=== PATIENT | male | born 1970 | race Two or more races ===

== ENCOUNTER 2018-03-26 11:48 | Inpatient (IN) | payer MEDICARE, OTHER ==
[~2018-03-26] VITALS: Ht 180.3 cm; Wt 114.8 kg
--- NOTE | 2018-03-26 12:30 | NUR ---
GPS ROLLER PRESSER OPERATOR NOTES: ADMITTED A 47YO MALE FROM [facility] ON 5150 HOLD FOR DAANGER TO [facility]. PATIENT IS UNDER THE CARE OF DR. MÉNDEZ AND DR. JARRETT. PER HOLD THE PATIENT IS DEPRESSED, , IN SAD MOOD, FLAT AFFECT, EXPRESSING COMPLETE HOPELESSNESS AND WAS UNABLE TO TO ENGAGE IN A SAFETY PLAN. PATIENT HAS HISTORY OF SELF HARM ATTEMPTS IN THE PAST AND MULTIPLE INPATIENT PSYCH ADMISSION. PATIENT BROUGHT INTO THE UNIT, AMBULATORY USHERED BY AMBULANCE STAFF. PRESENTS AT ALERT AND ORIENTED X4. ABLE TO STATE HIS NEEDS. REALITY ORIENTATION DONE. ORIENTATION TO UNIT, STAFF, POLICIES, DOCTORS AND CARE PLAN DONE. BELONGINGS AND CONTRABAND CHECK. SKIN AND BODY ASSESSMENT DONE. PATIENT DOES NOT HAVE ANY SKIN ISSUES HE CLAIMS AT THIS TIME. Q15 MIN CHECKS INITIATED. CARE PLAN ACKNOWLEDGE AND INITIATED. PATIENT SIGNED ALL ADMISSION PAPERS. MEDICATIONS BROUGHT IN WITH THE PATIENT SUBMITTED TO PHARMACY. DR. MÉNDEZ INFORMED OF THIS ADMISSION. DR. RED INFORMED WELL AND REMINDED OF MED RECON. MRSA DONE. PATIENT ADMITS TO HAVING SUICIDAL THOUGHTS, WHEN ASKED OF THE PLAN, HE STATED THERE IS NO PLAN. AND THAT THE VOICE ARE JUST TELLING HIM THAT HE IS A COWARD FOR NOT DOING IT. PATIENT DENIES ANY AUDITORY OR VISUAL HALLUCINATION. WILL MONITOR PATIENT FOR MOOD, SAFETY AND BEHAVIOR.
[2018-03-26] MEDS ORDERED: TEMAZEPAM 7.5 MG CAPSULE PO PRN (13:00)
[2018-03-26] MEDS ORDERED: MAG HYDROX/AL HYDROX/SIMETH 30 ML UDC PO PRN (13:00)
[2018-03-26] MEDS ORDERED: ACETAMINOPHEN 325 MG TABLET PO PRN (13:00)
[2018-03-26] MEDS ORDERED: MAGNESIUM HYDROXIDE 30 ML UDC PO PRN (13:00)
[2018-03-26] MEDS ORDERED: LORAZEPAM 0.5 MG TABLET PO PRN (13:00)
[2018-03-26 16:00] VITALS: BP 153/88
[2018-03-26] MEDS ORDERED: LOSA50TA39 PO (17:30)
[2018-03-26] MEDS ORDERED: BUPR100T5 PO (17:30)
[2018-03-26] MEDS ORDERED: HYDR25TA4 PO (17:30)
[2018-03-26] MEDS ORDERED: DOLU50TA PO (17:30)
[2018-03-26] MEDS ORDERED: EMTR1TAB6 PO (17:30)
[2018-03-26] MEDS ORDERED: MIRT30TA PO (17:31)
[2018-03-26] MEDS ORDERED: HYDR25CA PO (17:31)
[2018-03-26] MEDS ORDERED: ESCI20TA PO (17:31)
[2018-03-26] MEDS ORDERED: RIVASTIGMINE TARTRATE 1.5 MG CAPSULE PO SCH (19:30)
--- NOTE | 2018-03-26 19:30 | NUR ---
GPS RN NOTE, RECEIVED PATIENT AWAKE AND IN BED, NO S/S OR COMPLAINTS OF PAIN AT THIS TIME. PATIENT IS DISPLAYING NO S/S OF APPARENT DISTRESS AT THIS TIME. PATIENT BREATHING IS UNLABORED WITH EQUAL RISE AND FALL OF THE CHEST. PATIENT IS ALERT AND ORIENTED X 2 ON ROOM AIR WITH A SPO2 OF 97%. PATIENT IS MED COMPLIANT, COOPERATIVE, DEPRESSED, ANXIOUS, DISORGANIZED, PARANOID, AND NEEDS REDIRECTION. PATIENT HAS A PATIENT DENIES SUICIDE IDEATIONS AND HOMICIDAL IDEATIONS AT THIS TIME. PATIENT ASSISTED WITH TURNING AND REPOSITIONING Q 2HRS AND PRN FOR COMFORT AND CIRCULATION. PATIENT HAS NO NEEDS AT THIS TIME. PATIENT EDUCATED ON THE USE OF THE CALL COOPER. PATIENT BED SIDE RAILS UP X 2 FOR SAFETY, BED IS LOCKED, LOW, AND I WILL CONTINUE TO MONITOR AND MAINTAIN SAFETY Q15 MIN WITH THE HELP OF STAFF.
[2018-03-26 20:15] VITALS: BP 162/111
[2018-03-26] MEDS: TRAZODONE 50 MG TABLET PO SCH (21:44)
[2018-03-27 08:00] VITALS: BP 150/99
[2018-03-27] MEDS: LOSARTAN POTASSIUM 50 MG TABLET PO SCH (08:34)
[2018-03-27] MEDS: HYDROCHLOROTHIAZIDE 25 MG TABLET PO SCH (08:34)
[2018-03-27] MEDS: DIVALPROEX SODIUM 250 MG TABLET.DR PO SCH ×3 (08:34→17:01)
[2018-03-27 08:37] LABS: ALBUMIN 3.6 g/dL (3.4-5.0); BILIRUBIN,TOTAL 0.5 mg/dL (0.2-1.0); CALCIUM, SERUM 9.5 mg/dL (8.5-10.1); CREATININE 1.4 mg/dL (0.6-1.3); POTASSIUM 3.6 mmol/L (3.5-5.1); TOTAL PROTEIN, SERUM 9.3 g/dL (6.4-8.2)
[2018-03-27 08:43] LABS: CHOLESTEROL 231 mg/dL (<200); HDL CHOLESTEROL 30 mg/dL (40-60); LDL 162 mg/dL (0-99); TRIGLYCERIDES 277 mg/dL (30-150)
[2018-03-27] MEDS ORDERED: EMTRICITABINE/TENOFOVIR 1 TAB PO SCH (09:00)
[2018-03-27] MEDS ORDERED: TIVICAY 50 MG PO SCH (09:00)
[2018-03-27] MEDS: EMTRICITABINE 200 MG CAPSULE PO SCH ×2 (16:00→17:01)
[2018-03-27 16:16] VITALS: BP 156/98
[2018-03-27 20:23] VITALS: BP 138/73
[2018-03-27] MEDS: TRAZODONE 50 MG TABLET PO SCH (21:27)
[2018-03-28 08:00] VITALS: BP 162/95
[2018-03-28] MEDS: TENOFOVIR DISOPROXIL FUMARATE 300 MG TABLET PO SCH (08:57)
[2018-03-28] MEDS: EMTRICITABINE 200 MG CAPSULE PO SCH (08:57)
[2018-03-28] MEDS: LOSARTAN POTASSIUM 50 MG TABLET PO SCH (08:58)
[2018-03-28] MEDS: HYDROCHLOROTHIAZIDE 25 MG TABLET PO SCH (08:58)
[2018-03-28] MEDS: DIVALPROEX SODIUM 250 MG TABLET.DR PO SCH ×3 (08:58→17:34)
--- NOTE | 2018-03-28 09:51 | NUR ---
GPS RN NOTES Spoke to pharmacist regarding Tivicay home meds: meds were delivered yesterday. Nothing noted in the casette. Requested to deliver one dose for AM.
--- NOTE | 2018-03-28 11:28 | NUR ---
GPS RN NOTES Continue to wait for Tivicay. Not in patient's casette at this moment Addendum: 03/28/18 at 1523 by JUSTIN EDMOND RN Followed up with Pharmacy for Tivicay delivery. Pharmacist stated they delivered but nothing in patient's casette or other casettes; they will delivery another dose.
--- NOTE | 2018-03-28 15:19 | NUR ---
Initial Discharge Plan: Pt is currently homeless and did not give permission to the SW to contact his friend, Jose Francisco ([phone]). Per pt, he would like to be placed in a facility. ABIODUN will work with the pt and the MD regarding appropriate discharge planning. SW will form a safe and proper discharge.
--- NOTE | 2018-03-28 15:32 | NUR ---
ABIODUN faxed a referral to [facility] to the fax number: [phone].
[2018-03-28 16:00] VITALS: BP 119/84
[2018-03-28 19:36] VITALS: BP 126/58
[2018-03-28] MEDS: TRAZODONE 50 MG TABLET PO SCH (21:20)
[2018-03-29 08:00] VITALS: BP 138/87
[2018-03-29] MEDS: LOSARTAN POTASSIUM 50 MG TABLET PO SCH (08:26)
[2018-03-29] MEDS: HYDROCHLOROTHIAZIDE 25 MG TABLET PO SCH (08:26)
[2018-03-29] MEDS: TENOFOVIR DISOPROXIL FUMARATE 300 MG TABLET PO SCH ×2 (08:26→08:57)
[2018-03-29] MEDS: DIVALPROEX SODIUM 250 MG TABLET.DR PO SCH ×3 (08:26→16:30)
[2018-03-29] MEDS: EMTRICITABINE 200 MG CAPSULE PO SCH ×2 (08:26→08:56)
[2018-03-29] MEDS: AMLODIPINE BESYLATE 5 MG TABLET PO SCH (08:44)
[2018-03-29] MEDS: TIVICAY 50 MG PO SCH (08:49)
[2018-03-29] MEDS: EMTRICITABINE/TENOFOVIR 1 TAB PO SCH (11:43)
--- NOTE | 2018-03-29 12:53 | NUR ---
Glenys ([phone]) from [facility] [place] called the SW and informed her that the pt was denied admission to their facility.
[2018-03-29 16:00] VITALS: BP 130/74
--- NOTE | 2018-03-29 16:19 | NUR ---
ABIODUN sent a referral to two facilities listed below: [facility] (attn: Divya) to the fax number: [phone] [facility] (attn: Eva) to the fax number: [phone]
[2018-03-29 20:00] VITALS: BP 120/69
[2018-03-29 20:37] VITALS: BP 120/69
[2018-03-29] MEDS: TRAZODONE 50 MG TABLET PO SCH (21:59)
[2018-03-30 08:00] VITALS: BP 125/80
[2018-03-30] MEDS: HYDROCHLOROTHIAZIDE 25 MG TABLET PO SCH (08:34)
[2018-03-30] MEDS: AMLODIPINE BESYLATE 5 MG TABLET PO SCH (08:34)
[2018-03-30] MEDS: DIVALPROEX SODIUM 250 MG TABLET.DR PO SCH ×3 (08:34→16:05)
[2018-03-30] MEDS: EMTRICITABINE/TENOFOVIR 1 TAB PO SCH (08:35)
[2018-03-30] MEDS: LOSARTAN POTASSIUM 50 MG TABLET PO SCH (08:35)
[2018-03-30] MEDS: TIVICAY 50 MG PO SCH (08:36)
--- NOTE | 2018-03-30 12:31 | NUR ---
Divya ([phone]) from [facility] called the SW and stated that the pt was denied admission due to suicidal ideation.
--- NOTE | 2018-03-30 12:31 | NUR ---
Starla ([phone]) from [facility] called the SW and stated that the pt was denied admission to the facility due to the pt's homelessness.
--- NOTE | 2018-03-30 13:12 | NUR ---
Pt was accepted into four facilities: [facility] ([phone]) per [facility] ([phone]) per [facility] ([phone]) [phone] per Radha.
--- NOTE | 2018-03-30 13:12 | NUR ---
SW conducted a substance abuse intervention with the pt.
[2018-03-30 16:00] VITALS: BP 129/79
[2018-03-30 20:00] VITALS: BP 109/64
[2018-03-30] MEDS: TRAZODONE 50 MG TABLET PO SCH (22:04)
--- NOTE | 2018-03-31 06:20 | NUR ---
GPS/RN PATIENT IS AWAKE, AT THIS TIME, WINE CONSULTANT DRAWING BLOOD, ALL NEEDS ATTENDED AT THIS TIME, WILL CONTINUE TO MONITOR.
[2018-03-31 08:03] VITALS: BP_SYST 135; BP_SYST 99; BP_DIAS 69; BP_DIAS 87
[2018-03-31] MEDS: EMTRICITABINE/TENOFOVIR 1 TAB PO SCH (08:12)
[2018-03-31] MEDS: DIVALPROEX SODIUM 250 MG TABLET.DR PO SCH ×3 (08:12→16:38)
[2018-03-31] MEDS: AMLODIPINE BESYLATE 5 MG TABLET PO SCH (08:17)
[2018-03-31] MEDS: HYDROCHLOROTHIAZIDE 25 MG TABLET PO SCH (08:17)
[2018-03-31] MEDS: LOSARTAN POTASSIUM 50 MG TABLET PO SCH (08:18)
[2018-03-31] MEDS: TIVICAY 50 MG PO SCH (09:04)
[2018-03-31 17:04] VITALS: BP 125/76
--- NOTE | 2018-03-31 19:55 | NUR ---
GPS/RN OPENING NOTES RECEIVED REPORT FROM DAYSHIFT RN. FOUND Pt AWAKE, WATCHING TV IN THE REC ROOM. NO S/S OF ACUTE DISTRESS OR SOB NOTED. Pt IS A/OX3, VERBAL, ABLE TO MAKE NEEDS KNOWN. Pt IS AMB, COOPERATIVE, AND MED COMPLIANT. NO IV ACCESS PER GPS PROTOCOL. SAFETY MEASURES IN PLACE. WILL CONTINUE TO MONITOR Pt's CONDITION AND SAFETY THROUGHOUT THE NIGHT.
[2018-03-31 20:00] VITALS: BP 147/76
[2018-03-31] MEDS: TRAZODONE 50 MG TABLET PO SCH (20:43)
--- NOTE | 2018-03-31 20:46 | NUR ---
RN NOTES PER Pt REQUEST WANTED TO TAKE HIS MEDS EARLIER SO THAT HE CAN GO TO SLEEP AND NOT BE DISTURBED.
[2018-03-31 21:00] VITALS: BP 147/76
--- NOTE | 2018-03-31 21:55 | NUR ---
RN NOTES PER Pt's REQUEST FOR SLEEPING PILL TOOK OUT RESTORIL 15MG. BUT UPON RETURNING TO Pt's ROOM, Pt WAS ALREADY ASLEEP. WILL RETURN MED BY 2AM IF Pt DOES NOT WAKE UP FROM HIS SLEEP TO ASK AGAIN FOR HIS SLEEPING PILL.
--- NOTE | 2018-04-01 06:53 | NUR ---
RN CLOSING NOTES NO SIGNIFICANT CHANGES IN Pt's CONDITION. Pt REMAINS STABLE PER BASELINE. NO S/S OF ACUTE DISTRESS OR SOB NOTED DURING THE NIGHT. Pt IS CURRENTLY RESTING IN BED. RESPIRATIONS EVEN AND UNLABORED. ALL NEEDS MET AND ATTENDED TO. SAFETY MEASURES IN PLACE. WILL ENDORSE TO DAYSHIFT RN FOR Pt's JARED.
[2018-04-01 07:52] VITALS: BP 126/96
[2018-04-01] MEDS: LOSARTAN POTASSIUM 50 MG TABLET PO SCH (08:52)
[2018-04-01] MEDS: AMLODIPINE BESYLATE 5 MG TABLET PO SCH (08:53)
[2018-04-01] MEDS: DIVALPROEX SODIUM 250 MG TABLET.DR PO SCH ×3 (08:54→16:47)
[2018-04-01] MEDS: HYDROCHLOROTHIAZIDE 25 MG TABLET PO SCH (08:54)
[2018-04-01] MEDS: TIVICAY 50 MG PO SCH (08:55)
[2018-04-01] MEDS: EMTRICITABINE/TENOFOVIR 1 TAB PO SCH (08:56)
[2018-04-01 16:14] VITALS: BP 126/83
[2018-04-01 20:18] VITALS: BP 121/78
[2018-04-01] MEDS: TRAZODONE 50 MG TABLET PO SCH (21:37)
[2018-04-02 08:00] VITALS: BP 151/97
[2018-04-02] MEDS: LOSARTAN POTASSIUM 50 MG TABLET PO SCH (08:18)
[2018-04-02] MEDS: EMTRICITABINE/TENOFOVIR 1 TAB PO SCH (08:18)
[2018-04-02] MEDS: DIVALPROEX SODIUM 250 MG TABLET.DR PO SCH ×3 (08:18→16:08)
[2018-04-02] MEDS: TIVICAY 50 MG PO SCH (08:18)
[2018-04-02] MEDS: HYDROCHLOROTHIAZIDE 25 MG TABLET PO SCH (08:19)
[2018-04-02] MEDS: AMLODIPINE BESYLATE 5 MG TABLET PO SCH (08:19)
[2018-04-02 16:00] VITALS: BP 137/80
[2018-04-02 21:32] VITALS: BP 133/91
[2018-04-02] MEDS: TRAZODONE 50 MG TABLET PO SCH (21:50)
[2018-04-02] MEDS ORDERED: DIVALPROEX SODIUM 500 MG TABLET.DR PO SCH (22:00)
[2018-04-03 08:00] VITALS: BP 150/99
[2018-04-03] MEDS: AMLODIPINE BESYLATE 5 MG TABLET PO SCH (08:26)
[2018-04-03] MEDS: LOSARTAN POTASSIUM 50 MG TABLET PO SCH (08:26)
[2018-04-03] MEDS: EMTRICITABINE/TENOFOVIR 1 TAB PO SCH (08:27)
[2018-04-03] MEDS: TIVICAY 50 MG PO SCH (08:27)
[2018-04-03] MEDS ORDERED: DIVALPROEX SODIUM 250 MG TABLET.DR PO SCH (09:00)
[2018-04-03 09:12] VITALS: BP 150/99
[2018-04-03] MEDS: HYDROCHLOROTHIAZIDE 25 MG TABLET PO SCH (09:12)
--- NOTE | 2018-04-03 11:59 | NUR ---
Pt stated that he would like to go to [facility] due to its location.
--- NOTE | 2018-04-03 16:04 | NUR ---
Discharge Note:Pt was being discharged to [facility] ([facility]) located at [address] [place] [address]; ([phone]). Pt was transported via [facility] (Trip #[id number]) at 3:00 PM. Upon discharge, the pt appeared to be in a euthymic mood and presented with a calm affect. The pt stated that he was content about not being homeless for the time being. Pt denied both suicidal and homicidal ideation as well as visual and auditory hallucinations. Pt was provided with substance use referrals. Pt will be under the care of his psychiatrist, Dr. Armenta, located at [address], [place] [address]; ) and his hangersmith, Dr. Thomason, located at [address] [place] [address]; ). Pts psychiatrist and hangersmith will follow up with the pt regarding his substance use. Substance Use Referrals: [facility] [address] [place] [address] Tel. [facility] [address] [place] Provider Mental Health Treatment Tele-dermatology HIV Services Telemedicine Services [facility] [address] [place] [address] [facility] [address] [place] [address]
--- NOTE | 2018-04-12 11:42 | NUR ---
15 Day Substance Abuse Follow Up: Pt is exempt from the follow up because the pt was discharged to a custodial facility called [facility].
== END 2018-04-03 15:15 | DRG 885 ==
LOC: GPS 11:48
PROVIDERS: ADMIT Psychiatry & Neurology Psychiatry; ATTEND Psychiatry & Neurology Psychiatry
DX: F31.30 Bipolar disorder, current episode depressed, mild or moderate severity, unspecified (principal); N18.9 Chronic kidney disease, unspecified; F23 Brief psychotic disorder; R45.851 Suicidal ideations; F41.9 Anxiety disorder, unspecified; F39 Unspecified mood [affective] disorder; I12.9 Hypertensive chronic kidney disease with stage 1 through stage 4 chronic kidney disease, or unspecified chronic kidney disease
CPT/HCPCS: 36415; 80053-TC; 80061-TC; 80164-TC; 87081-TC

== ENCOUNTER 2020-03-12 12:08 | Inpatient (IN) | payer MEDICARE, OTHER ==
[~2020-03-12] VITALS: Ht 182.9 cm; Wt 93.0 kg
[~2020-03-12 12:08] MED LIST: DOLU50TA PO; EMTR1TAB6 PO; HYDR25TA4 PO; LOSA50TA39 PO
--- NOTE | 2020-03-12 12:30 | NUR ---
Patient admitted from ER, received report by Marjan/RN.
[2020-03-12] MEDS ORDERED: MIRT15TA7 PO (12:54)
[2020-03-12] MEDS ORDERED: LOSA100T31 PO (12:54)
[2020-03-12] MEDS ORDERED: IBUP-1955 PO (12:54)
[2020-03-12] MEDS ORDERED: AMLO10TA4 PO (12:54)
[2020-03-12] MEDS ORDERED: ACETAMINOPHEN 325 MG TABLET PO PRN (13:00)
[2020-03-12] MEDS ORDERED: MAGNESIUM HYDROXIDE 30 ML UDC PO PRN (13:00)
[2020-03-12] MEDS ORDERED: BLOOD SUGAR DIAGNOSTIC 1 EACH STRIP IN ONE (13:00)
[2020-03-12] MEDS ORDERED: MAG HYDROX/AL HYDROX/SIMETH 30 ML UDC PO PRN (13:00)
--- NOTE | 2020-03-12 13:00 | NUR ---
Patient seen by Dr. Covarrubias and 5150 hold.
[2020-03-12 13:35] VITALS: BP 157/79
[2020-03-12 16:00] VITALS: BP 149/97
--- NOTE | 2020-03-12 16:57 | NUR ---
Patient refused MRSA collect sample.
--- NOTE | 2020-03-12 17:51 | NUR ---
Lorenzo YOGA INSTRUCTOR in the unit and ordered to changed diet to regular double portion.
[2020-03-12] MEDS: TEMAZEPAM 7.5 MG CAPSULE PO PRN (20:31)
[2020-03-12] MEDS: clonazePAM 0.5 MG TABLET PO PRN (20:31)
[2020-03-12] MEDS ORDERED: TRAZODONE 50 MG TABLET ONE (21:43)
[2020-03-12] MEDS: TRAZODONE 50 MG TABLET PO SCH (21:55)
[2020-03-12] MEDS: MIRTAZAPINE 15 MG TABLET PO SCH (22:03)
[2020-03-13 07:17] LABS: CHOLESTEROL 169 mg/dL (<200); HDL CHOLESTEROL 30 mg/dL (40-60); LDL 116 mg/dL (0-99); TRIGLYCERIDES 138 mg/dL (30-150)
[2020-03-13 07:19] LABS: ALBUMIN 2.8 g/dL (3.4-5.0); BILIRUBIN,TOTAL 0.3 mg/dL (0.2-1.0); CALCIUM, SERUM 8.7 mg/dL (8.5-10.1); CREATININE 1.4 mg/dL (0.6-1.3); POTASSIUM 3.9 mmol/L (3.5-5.1); TOTAL PROTEIN, SERUM 8.7 g/dL (6.4-8.2)
[2020-03-13 08:00] VITALS: BP 137/84
[2020-03-13] MEDS: AMLODIPINE BESYLATE 10 MG TABLET PO SCH (08:24)
[2020-03-13] MEDS: LOSARTAN POTASSIUM 50 MG TABLET PO SCH (08:24)
--- NOTE | 2020-03-13 10:45 | NUR ---
Substance Abuse Intervention: ABIODUN conducted a substance abuse intervention with the pt due to his crystal methamphetamine and alcohol use four days prior to his hospitalization.
[2020-03-13] MEDS: TIVICAY 50 MG PO SCH (10:53)
[2020-03-13] MEDS: EMTRICITABINE/TENOFOVIR 1 TAB PO SCH (10:53)
--- NOTE | 2020-03-13 13:20 | NUR ---
Family Contact: SW called the pts friend, Jose Francisco ([phone]), and was unable to leave a voicemail as the voicemail box was full.
--- NOTE | 2020-03-13 14:06 | NUR ---
Initial Discharge Plan: Pt is currently homeless and accepts SNF placement. SW will work with the pt and the MD regarding appropriate discharge planning. SW will form a safe and proper discharge.
--- NOTE | 2020-03-13 14:59 | NUR ---
Pt. refused MRSA swabbing, explained on the importance and still refusing
[2020-03-13 16:00] VITALS: BP 153/93
[2020-03-13 20:17] VITALS: BP 127/70
--- NOTE | 2020-03-13 21:55 | NUR ---
GPS-RN NOTE: PATIENT REFUSED TRAZADONE DOSE FOR TONIGHT. EDUCATED PATIENT REGARDING MEDICATION COMPLIANCE BUT PATIENT CONTINUED TO REFUSE X3. WILL ENDORSE TO THE DAY SHIFT NURSE.
[2020-03-13] MEDS: TRAZODONE 50 MG TABLET PO SCH ×2 (22:00→22:08)
[2020-03-13] MEDS ORDERED: TRAZODONE 50 MG TABLET ONE (22:07)
[2020-03-13] MEDS: MIRTAZAPINE 15 MG TABLET PO SCH (22:08)
[2020-03-14 07:18] LABS: BASOPHILS % (AUTO) 0.4 % (0.0-2.0); EOSINOPHILS % (AUTO) 2.2 % (0.0-6.0); HEMATOCRIT 36 % (39-51); HEMOGLOBIN 11.7 g/dL (13.5-17.5); LYMPHOCYTES # (AUTO) 1.3 /CMM (0.8-4.8); LYMPHOCYTES % (AUTO) 33.1 % (20.0-44.0); MEAN CORPUSCULAR HGB CONC 32 g/dl (31.0-36.0); MEAN CORPUSCULAR VOLUME 89 fL (80-96); MONOCYTES # (AUTO) 0.6 /CMM (0.1-1.30); MONOCYTES % (AUTO) 14.3 % (2.0-12.0); PLATELET COUNT (AUTO) 264 /CMM (150-450); RED BLOOD CELL COUNT(AUTO) 4.02 MIL/uL (4.5-6.0); WHITE BLOOD COUNT (AUTO) 4.1 K/uL (4.3-11.0)
[2020-03-14 07:30] LABS: PHOSPHORUS 3.1 mg/dL (2.5-4.9)
[2020-03-14] MEDS: EMTRICITABINE/TENOFOVIR 1 TAB PO SCH (08:28)
[2020-03-14] MEDS: TIVICAY 50 MG PO SCH (08:28)
[2020-03-14] MEDS: AMLODIPINE BESYLATE 10 MG TABLET PO SCH (08:28)
[2020-03-14] MEDS: LOSARTAN POTASSIUM 50 MG TABLET PO SCH (08:29)
--- NOTE | 2020-03-14 09:00 | NUR ---
RN NOTE- PT PO INTAKE GOOD , MED COMPLIANT THOUGH REFUSED VS THIS MORNING. STATES ' IM TIRED'. ASKING FOR DOUBLE PORTIONS EXTRA FOOD. ISOLATIVE WITHDRAWN A BIT IRRITABLE AT TIMES. DENIES ALL THIS MORNING
[2020-03-14] MEDS: IBUPROFEN 600 MG TABLET PO PRN (15:57)
[2020-03-14] MEDS: clonazePAM 0.5 MG TABLET PO PRN (15:57)
--- NOTE | 2020-03-14 15:58 | NUR ---
RN NOTE- PT C/O ANXIETY AND GENERAL BODY ACHES. KLONOPIN 0.5 MG AND IBUPROFEN 600 MG GIVEN
[2020-03-14 16:05] VITALS: BP 147/95
[2020-03-14 16:34] LABS: BILIRUBIN,URINE NEGATIVE (NEGATIVE); BLOOD, URINE TRACE-INTA Ery/uL (NEGATIVE); COLOR,URINE YELLOW (YELLOW); LEUKOCYTE ESTERASE ,URINE NEGATIVE (NEGATIVE); NITRITE, URINE NEGATIVE (NEGATIVE); PROTEIN,URINE NEGATIVE (NEGATIVE); UGLUCOSE NEGATIVE (NEGATIVE); UROBILINOGEN,URINE 0.2 EU/dL (0.2)
[2020-03-14 16:49] LABS: BACTERIA,URINE None seen /HPF (None Seen); RBC,URINE 0-2 /HPF (0-2); SQUAMOUS EPITHELIAL CELL,UR 0-2 /HPF (None Seen); WBC,URINE 0-2 /HPF (0-3)
[2020-03-14 17:16] LABS: EOSINOPHIL,URINE None Seen
[2020-03-14 17:31] LABS: CREATININE, URINE 177.5 MG/DL (30.0-125.0); URINE TOTAL PROTEIN 24.7 mg/dL (0-11.9)
[2020-03-14 20:00] VITALS: BP 147/80
[2020-03-14] MEDS ORDERED: TRAZODONE 50 MG TABLET ONE ×2 (21:08→21:13)
[2020-03-14] MEDS: TRAZODONE 50 MG TABLET PO SCH (21:15)
[2020-03-14] MEDS: MIRTAZAPINE 15 MG TABLET PO SCH (21:15)
[2020-03-15 07:21] LABS: PTH, INTACT 17 pg/mL (15-65)
[2020-03-15 08:00] VITALS: BP 121/92
[2020-03-15] MEDS: EMTRICITABINE/TENOFOVIR 1 TAB PO SCH (08:50)
[2020-03-15] MEDS: TIVICAY 50 MG PO SCH (08:51)
[2020-03-15] MEDS: LOSARTAN POTASSIUM 50 MG TABLET PO SCH (08:52)
[2020-03-15] MEDS: clonazePAM 0.5 MG TABLET PO PRN ×2 (08:52→20:07)
[2020-03-15] MEDS: AMLODIPINE BESYLATE 10 MG TABLET PO SCH (08:53)
[2020-03-15 16:00] VITALS: BP 130/72
--- NOTE | 2020-03-15 20:09 | NUR ---
RN NOTES: ANXIETY PT.C/O FEELING ANXIOUS ,KLONOPIN 0.5 MG PO PRN GIVEN PER PT. REQUEST,WILL CONTINUE TO MONITOR.
[2020-03-15 20:11] VITALS: BP 123/69
[2020-03-15] MEDS: TRAZODONE 50 MG TABLET PO SCH (21:04)
[2020-03-15] MEDS: MIRTAZAPINE 15 MG TABLET PO SCH (21:04)
[2020-03-16 07:49] LABS: BASOPHILS % (AUTO) 0.5 % (0.0-2.0); EOSINOPHILS % (AUTO) 1.9 % (0.0-6.0); HEMATOCRIT 36 % (39-51); HEMOGLOBIN 11.6 g/dL (13.5-17.5); LYMPHOCYTES # (AUTO) 1.5 /CMM (0.8-4.8); LYMPHOCYTES % (AUTO) 28.6 % (20.0-44.0); MEAN CORPUSCULAR HGB CONC 32 g/dl (31.0-36.0); MEAN CORPUSCULAR VOLUME 90 fL (80-96); MONOCYTES # (AUTO) 0.6 /CMM (0.1-1.30); MONOCYTES % (AUTO) 11.9 % (2.0-12.0); NEUTROPHILS # (AUTO) 2.9 /CMM (1.8-8.9); NEUTROPHILS % (AUTO) 57.1 % (43.0-81.0); PLATELET COUNT (AUTO) 260 /CMM (150-450); RED BLOOD CELL COUNT(AUTO) 4.01 MIL/uL (4.5-6.0); WHITE BLOOD COUNT (AUTO) 5.1 K/uL (4.3-11.0)
[2020-03-16 08:00] VITALS: BP 115/66
[2020-03-16 08:23] LABS: CALCIUM, SERUM 8.8 mg/dL (8.5-10.1); CREATININE 1.3 mg/dL (0.6-1.3); POTASSIUM 4.1 mmol/L (3.5-5.1)
[2020-03-16] MEDS: EMTRICITABINE/TENOFOVIR 1 TAB PO SCH (08:49)
[2020-03-16] MEDS: TIVICAY 50 MG PO SCH (08:49)
[2020-03-16] MEDS: AMLODIPINE BESYLATE 10 MG TABLET PO SCH (09:00)
[2020-03-16] MEDS: LOSARTAN POTASSIUM 50 MG TABLET PO SCH (09:00)
[2020-03-16] MEDS: IBUPROFEN 600 MG TABLET PO PRN (10:54)
[2020-03-16 12:06] LABS: *SPE A/G RATIO 0.6 (0.7-1.7); *SPE ALPHA-1-GLOBULIN 0.2 g/dL (0.0-0.4); *SPE ALPHA-2-GLOBULIN 0.8 g/dL (0.4-1.0); *SPE GLOBULIN, TOTAL 5.1 g/dL (2.2-3.9); *SPE M-SPIKE Not Observed g/dL (Not Observed); *SPEGAMMA GLOBULIN 3.1 g/dL (0.4-1.8)
[2020-03-16 16:00] VITALS: BP 143/83
[2020-03-16 20:23] VITALS: BP 143/86
[2020-03-16] MEDS: TEMAZEPAM 7.5 MG CAPSULE PO PRN (21:05)
[2020-03-16] MEDS: MIRTAZAPINE 15 MG TABLET PO SCH (21:05)
[2020-03-16] MEDS: clonazePAM 0.5 MG TABLET PO PRN (21:05)
[2020-03-16] MEDS: TRAZODONE 50 MG TABLET PO SCH (21:06)
[2020-03-17] MEDS: AMLODIPINE BESYLATE 10 MG TABLET PO SCH (08:31)
[2020-03-17] MEDS: LOSARTAN POTASSIUM 50 MG TABLET PO SCH (08:32)
[2020-03-17] MEDS: EMTRICITABINE/TENOFOVIR 1 TAB PO SCH (08:33)
[2020-03-17] MEDS: TIVICAY 50 MG PO SCH (08:33)
[2020-03-17 08:52] VITALS: BP 130/75
--- NOTE | 2020-03-17 09:26 | NUR ---
WOUND CARE CONSULT: PT PRESENTS WITH BILATERAL ARM WOUNDS WHICH ARE CIRCULAR, PRESENT ON ADMISSION. RECOMMEND SURGICAL CONSULT. DR ANA SIERRA NOTIFIED OF CONSULT REQUEST. RECOMMENDATIONS MADE FOR WOUND CARE AND SKIN PROTECTION. DISCUSSED WITH NURSING STAFF. MD IN AGREEMENT WITH PLAN OF CARE.
[2020-03-17] MEDS: NEOMY SULF/BACITRAC ZN/POLY 15 GM TUBE TP SCH (09:30)
--- NOTE | 2020-03-17 09:44 | NUR ---
SNF Referral: ABIODUN faxed a referral to [facility] with attn to ANA and John to the fax number: [phone].
[2020-03-17 16:00] VITALS: BP 131/66
[2020-03-17 20:41] VITALS: BP 146/79
[2020-03-17] MEDS: TEMAZEPAM 7.5 MG CAPSULE PO PRN (21:20)
[2020-03-17] MEDS: clonazePAM 0.5 MG TABLET PO PRN (21:20)
[2020-03-17] MEDS: IBUPROFEN 600 MG TABLET PO PRN (21:20)
[2020-03-17] MEDS: MIRTAZAPINE 15 MG TABLET PO SCH (21:21)
[2020-03-17] MEDS: TRAZODONE 50 MG TABLET PO SCH (21:21)
[2020-03-18 08:00] VITALS: BP 108/73
[2020-03-18] MEDS: NEOMY SULF/BACITRAC ZN/POLY 15 GM TUBE TP SCH ×2 (09:00→09:28)
[2020-03-18] MEDS: TIVICAY 50 MG PO SCH (09:23)
[2020-03-18] MEDS: EMTRICITABINE/TENOFOVIR 1 TAB PO SCH (09:23)
[2020-03-18] MEDS: AMLODIPINE BESYLATE 10 MG TABLET PO SCH (09:27)
[2020-03-18] MEDS: LOSARTAN POTASSIUM 50 MG TABLET PO SCH (09:27)
--- NOTE | 2020-03-18 14:44 | NUR ---
SNF Contact: Sammi ([phone]) from [facility] called the SW and stated that the pt was accepted to their facility upon discharge.
--- NOTE | 2020-03-18 15:10 | NUR ---
Individual Intervention: SW met with the pt in the activities room and he stated that he wanted to return to the [facility] and remain homeless. SW informed him that she had found placement at a assisted facility called [facility] and that he would be provided with medical and psychiatric care as well as receive food and mcfp. Pt stated that he will think about it and talk to the SW the following day.
[2020-03-18 16:00] VITALS: BP 152/95
[2020-03-18] MEDS: clonazePAM 0.5 MG TABLET PO PRN (19:54)
--- NOTE | 2020-03-18 19:55 | NUR ---
GPS RN NOTE: ANXIETY OT C/O OF INCREASED ANXIETY, RESTLESSNESS, ASKED FOR KLONOPIN, ADMIN KLONOPIN 0.5MG PRN @ 1953, WILL REASSESS AND CONTINUE TO MONITOR Q15MIN FOR SAFETY AND BEHAVIOR.
[2020-03-18] MEDS: IBUPROFEN 600 MG TABLET PO PRN (20:26)
--- NOTE | 2020-03-18 20:27 | NUR ---
GPS RN NOTE: PAIN PT C/O OF 11/24 LOWER BACK PAIN, ADMIN MOTRIN 600MG PRN @ 2025, WILL REASSESS AND CONTINUE TO MONITOR Q15MIN FOR SAFETY AND BEHAVIOR.
[2020-03-18 21:06] VITALS: BP 146/85
[2020-03-18] MEDS: TRAZODONE 50 MG TABLET PO SCH (21:16)
[2020-03-18] MEDS: MIRTAZAPINE 15 MG TABLET PO SCH (21:16)
[2020-03-19 08:00] VITALS: BP 134/95
[2020-03-19] MEDS: AMLODIPINE BESYLATE 10 MG TABLET PO SCH (08:25)
[2020-03-19] MEDS: EMTRICITABINE/TENOFOVIR 1 TAB PO SCH (08:25)
[2020-03-19] MEDS: TIVICAY 50 MG PO SCH (08:25)
[2020-03-19] MEDS: LOSARTAN POTASSIUM 50 MG TABLET PO SCH (08:26)
[2020-03-19] MEDS: NEOMY SULF/BACITRAC ZN/POLY 15 GM TUBE TP SCH (10:50)
--- NOTE | 2020-03-19 12:02 | NUR ---
Individual Intervention: SW met with the pt in the activities room and he stated that he will agree to go to a mcfp facility but he wants to leave earlier than Monday. SW encouraged him to speak to his MD if he feels ready.
[2020-03-19] MEDS: DAKINS QUARTER STRENGTH (0.125%) 480 ML BOTTLE TOP SCH (14:02)
[2020-03-19 16:00] VITALS: BP 137/76
[2020-03-19] MEDS: IBUPROFEN 600 MG TABLET PO PRN (16:58)
[2020-03-19 20:02] VITALS: BP 146/80
[2020-03-19 20:35] VITALS: BP 146/80
[2020-03-19] MEDS: TRAZODONE 50 MG TABLET PO SCH (21:14)
[2020-03-19] MEDS: MIRTAZAPINE 15 MG TABLET PO SCH (21:14)
[2020-03-19] MEDS: clonazePAM 0.5 MG TABLET PO PRN (22:03)
--- NOTE | 2020-03-19 22:05 | NUR ---
GPS RN NOTE: ANXIETY PATIENT IS AWAKE, AGITATED, LOUD, ANXIOUS, RESTLESS & INSISTED TO TAKE ANXIETY MEDICINE RIGHT NOW. PRN KLONOPIN 0.5 MG 1 TAB PO GIVEN.
[2020-03-20] MEDS: LOSARTAN POTASSIUM 50 MG TABLET PO SCH (08:42)
[2020-03-20] MEDS: AMLODIPINE BESYLATE 10 MG TABLET PO SCH (08:42)
[2020-03-20] MEDS: EMTRICITABINE/TENOFOVIR 1 TAB PO SCH (08:43)
[2020-03-20] MEDS: NEOMY SULF/BACITRAC ZN/POLY 15 GM TUBE TP SCH (08:44)
[2020-03-20] MEDS: TIVICAY 50 MG PO SCH (08:44)
[2020-03-20] MEDS: DAKINS QUARTER STRENGTH (0.125%) 480 ML BOTTLE TOP SCH (08:44)
--- NOTE | 2020-03-20 09:00 | NUR ---
RN NOTE- PT ANXIOUS IRRITABLE FOCUS ON DC TO [facility] MON[facility]. PO INTAKE GOOD, MED COMPLIANT DENIES ALL
--- NOTE | 2020-03-20 09:05 | NUR ---
[facility] Contact: SW called [facility] ([phone]) and spoke to Keith who stated that there are a few beds available but their correction is divided into a day service and a night service. He also stated that the pt would have to arrive at the correction and conduct an intake face to face before getting accepted for a bed and there is no guarantee.
[2020-03-20 09:09] VITALS: BP 130/76
[2020-03-20] MEDS: clonazePAM 0.5 MG TABLET PO PRN ×2 (09:15→19:53)
--- NOTE | 2020-03-20 09:15 | NUR ---
RN NOTE- PT SPEAKING WITH SW ABOUT DC ON MONDAY. BECAME AGITATED RAISING VOICE AND YELLING AT SW. KLONOPIN 0.5 MG GIVEN. REDIRECTED. CALMED.
--- NOTE | 2020-03-20 09:15 | NUR ---
Individual Intervention: SW met with the pt at bedside and attempted to discuss pts discharge. Pt stated that he does not want to be discharged to a SNF and instead provided the SW with an address to [facility] located at [address] [place] [address], [place] [address]. SW called [facility] and received a message that stated they were closed due to COVID. SW informed the pt who became extremely agitated and who stated, "Why are you checking up on the address that I gave you? Just send me there because I can sleep there." SW stated that it her job to ensure a safe discharge for the pt and asked if there is anywhere else he can go because the shelters are at capacity or almost capacity and require a face to face intake which will not even guarantee a spot. Pt stated that he has many places that he can go but that there is no one to contact to ensure he can be there. Pt also stated that he received his disability check on 03/19/20 and that he does not want to "waste money getting an Amtrak back to [place]." Pt started yelling at the SW and stated, "You are a fucking bitch you just have to dig and dig into everything you bitch you're not trying to help me." SW left the room at this point as the pt was being verbally aggressive and SW was unable to engage the pt in a meaningful conversation.
--- NOTE | 2020-03-20 09:19 | NUR ---
[facility] Contact: SW called Bret Phoenix ([phone]), from [facility], and the SW explained to him that the pt is currently unable to provide an address to be discharged to and is refusing to go to the usp facility that he was accepted to. SW informed Bret that the address that the pt did provide was to [facility] and when the SW called, they were closed. Pt states that he has places that he can stay and is willing to sign the homeless waiver stating that he is aware that the shelters are closed and that he is choosing his own location and own transportation. Bret then informed the SW that their services are through [facility] which is not being billed for his stay so they will be unable to provide transportation. SW transferred Bret to the nursing station so that he can speak to the pt and explain the transportation situation.
[2020-03-20] MEDS ORDERED: OLANZAPINE 5 MG TABLET PO STA (09:41)
--- NOTE | 2020-03-20 09:48 | NUR ---
RN NOTE- PT AGITATED ON PHONE YELLING. CAME OUT OF ROOM THROWING OHONE DOWN CRAWFORD THEN WALKED OVER TO COMPUTER MODULE AND THREW IT DOWN CRAWFORD. NANCY PEREZ CALLED. ESCORTED TO ROOM AND HAD PT LIE IN BED. SECURITY AND STAFF PRESENT. REDIRECTED DEESCALATION DONE BY THIS RN. DR DELGADO ORDERED ZYPREXA 15 MG PO X ONE DOSE STAT. COMPLIED
--- NOTE | 2020-03-20 10:04 | NUR ---
RN NOTE- PT STATES "IM OK NOW. JUST FRUSTRATED. I JUST WANT TO BE DC BACK TO [place]. " REDIRECTED ENCOURAGED PT TO STAY CALM AND SAFE. MONITORING. PT CALM RESTING QUIETLY ON BED.
--- NOTE | 2020-03-20 10:14 | NUR ---
Pt became aggressive and a huseyin daniel was called after the pt threw a phone and a computer that was in the hallway. Pt received an IM shot. Addendum: 03/20/20 at 1019 by ABIODUN FREEMAN Pt did not receive an IM shot and instead received Zyprexa 15mg PO once stat.
--- NOTE | 2020-03-20 10:24 | NUR ---
[facility] Contact: ABIODUN called Natalia ([phone]), and informed her about the pt who is going to be discharged back to the [facility] area on Monday. ABIODUN informed her that the pt is refusing SNF and is also refusing shelters but was given information about the shelters and that they need a face to face consult before they can accept anyone. Pt repeatedly refused the shelters and ABIODUN informed her in the case that the pt does end up trying to admit to one.
--- NOTE | 2020-03-20 11:30 | NUR ---
RN NOTE- MT SLEEPING QUIETLY
--- NOTE | 2020-03-20 12:44 | NUR ---
RN NOTE- PT ATE LUNCH AND RETURNED TO ROOM CALM DIRECTABLE AND INTERACTIVE W THIS RN.
[2020-03-20 16:13] VITALS: BP 113/56
[2020-03-20] MEDS: CEPHALEXIN MONOHYDRATE 250 MG CAPSULE PO SCH ×2 (16:21→23:57)
--- NOTE | 2020-03-20 17:30 | NUR ---
DREDGE PIPE INSTALLER - BILATERAL FOREARM ANTI-CUBITAL WOUNDS, CLEANSED W DAKINS AND TRIPLE ABX OINTMENT APPLIED. COVERED W TELFA. TAPED SECURELY. MINIMAL ERYTHEMA OR EXUDATE. TOLERATED WELL.
--- NOTE | 2020-03-20 19:53 | NUR ---
RN NOTES: ANXIETY PT.C/O FEELING ANXIOUS ,KLONOPIN 0.5 MG PO PRN GIVEN PER PT. REQUEST,WILL CONTINUE TO MONITOR.
[2020-03-20] MEDS: MIRTAZAPINE 15 MG TABLET PO SCH (21:05)
[2020-03-20] MEDS: TRAZODONE 50 MG TABLET PO SCH (21:05)
[2020-03-21 08:00] VITALS: BP 139/85
[2020-03-21] MEDS: TIVICAY 50 MG PO SCH (09:17)
[2020-03-21] MEDS: DAKINS QUARTER STRENGTH (0.125%) 480 ML BOTTLE TOP SCH (09:17)
[2020-03-21] MEDS: EMTRICITABINE/TENOFOVIR 1 TAB PO SCH (09:17)
[2020-03-21] MEDS: NEOMY SULF/BACITRAC ZN/POLY 15 GM TUBE TP SCH (09:18)
[2020-03-21] MEDS: AMLODIPINE BESYLATE 10 MG TABLET PO SCH (09:20)
[2020-03-21] MEDS: CEPHALEXIN MONOHYDRATE 250 MG CAPSULE PO SCH ×3 (09:20→23:48)
[2020-03-21] MEDS: LOSARTAN POTASSIUM 50 MG TABLET PO SCH (09:20)
[2020-03-21] MEDS: clonazePAM 0.5 MG TABLET PO PRN ×2 (10:36→19:27)
[2020-03-21 16:17] VITALS: BP 123/70
--- NOTE | 2020-03-21 19:28 | NUR ---
RN NOTES: ANXIETY PT.C/O FEELING ANXIOUS ,RESTLESS ,KLONOPIN 0.5 MG PO PRN GIVEN PER PT. REQUEST,WILL CONTINUE TO MONITOR.
[2020-03-21 21:02] VITALS: BP 142/73
[2020-03-21] MEDS: TRAZODONE 50 MG TABLET PO SCH (21:30)
[2020-03-21] MEDS: MIRTAZAPINE 15 MG TABLET PO SCH (21:30)
[2020-03-22 08:00] VITALS: BP 161/83
[2020-03-22] MEDS: AMLODIPINE BESYLATE 10 MG TABLET PO SCH (08:35)
[2020-03-22] MEDS: LOSARTAN POTASSIUM 50 MG TABLET PO SCH (08:35)
[2020-03-22] MEDS: CEPHALEXIN MONOHYDRATE 250 MG CAPSULE PO SCH ×3 (08:35→23:03)
[2020-03-22] MEDS: EMTRICITABINE/TENOFOVIR 1 TAB PO SCH (08:36)
[2020-03-22] MEDS: NEOMY SULF/BACITRAC ZN/POLY 15 GM TUBE TP SCH (08:36)
[2020-03-22] MEDS: TIVICAY 50 MG PO SCH (08:36)
[2020-03-22] MEDS: DAKINS QUARTER STRENGTH (0.125%) 480 ML BOTTLE TOP SCH (08:37)
[2020-03-22] MEDS: IBUPROFEN 600 MG TABLET PO PRN (08:39)
--- NOTE | 2020-03-22 08:39 | NUR ---
RN NOTE- C/OG GENERALIZED PAIN. MOTRIN 600 MG GIVEN
--- NOTE | 2020-03-22 09:00 | NUR ---
RN NOTE- PT VISIBLE ON UNIT CALM NO BEHAVIORAL ISSUES WATCHING TV IN DAY ROOM MED COMPLIANT DENIES SI HI AH VH SLEEPING WELL.
[2020-03-22 16:00] VITALS: BP 133/73
[2020-03-22] MEDS: clonazePAM 0.5 MG TABLET PO PRN (19:36)
--- NOTE | 2020-03-22 19:37 | NUR ---
GPS RN NOTE: ANXIETY PT WAS C/O OF ANXIETY REQUESTED KLONOPIN, VSS AT THIS TIME, NO DISTRESS NOTED, ADMIN KLONOPIN 0.5 MG @ 1936 WILL REASSESS AND CONTINUE TO MONITOR Q15 MIN FOR SAFETY AND BEHAVIOR.
[2020-03-22 20:00] VITALS: BP 130/77
[2020-03-22 20:47] VITALS: BP 138/72
[2020-03-22] MEDS: MIRTAZAPINE 15 MG TABLET PO SCH (21:20)
[2020-03-22] MEDS: TRAZODONE 50 MG TABLET PO SCH (21:20)
[2020-03-23] MEDS: CEPHALEXIN MONOHYDRATE 250 MG CAPSULE PO SCH (07:00)
[2020-03-23 08:00] VITALS: BP 149/94
--- NOTE | 2020-03-23 08:19 | NUR ---
SW Discharge Note: Patient will be discharged to [facility] located at [address] [place] [address]; ([phone]). Pt will be picked up via county transport around 1PM. Patient does not have family at this moment. Patient is alert and oriented x3. Patient denies any suicidal or homicidal ideations. Patient is aware and agreeable with discharge plans. Patient was accepted at [facility], but refused to go to a nursing facility. Patient will follow up with (psychiatrist) [facility] located at [address], [address], [place] [address]; ([phone]) and (Licensed Clinician) Dr. Billie Graham located at [address], [place] [address]; . Patient was given substance abuse resources: [facility] Substance Abuse Self-helpline ([phone]); [facility] [address] [place] [address] ([phone]); [facility] [address] [place] [address] ([phone]); [facility] ([phone]); [facility] ([phone]); [facility] ([phone]); [facility] ([phone]). Patient presents with euthymic and congruent affect. Patient signed the homeless waiver form and a copy was placed in the chart.
[2020-03-23 09:16] VITALS: BP 149/94
[2020-03-23] MEDS: LOSARTAN POTASSIUM 50 MG TABLET PO SCH (09:16)
[2020-03-23] MEDS: EMTRICITABINE/TENOFOVIR 1 TAB PO SCH (09:16)
[2020-03-23] MEDS: AMLODIPINE BESYLATE 10 MG TABLET PO SCH (09:16)
[2020-03-23] MEDS: TIVICAY 50 MG PO SCH (09:16)
[2020-03-23] MEDS: NEOMY SULF/BACITRAC ZN/POLY 15 GM TUBE TP SCH (09:21)
[2020-03-23] MEDS: DAKINS QUARTER STRENGTH (0.125%) 480 ML BOTTLE TOP SCH (09:22)
--- NOTE | 2020-03-23 10:51 | NUR ---
RN-CO:PATIENT IS CALM AND COOPERATIVE TO CARE. DENIED AUDITORY AND VISUAL HALLUCINATIONS. DENIED SUICIDAL AND HOMICIDAL IDEATIONS. NO ACUTE DISTRESS NOTED. MEDICALLY CLEARED FOR DISCHARGE.DR DELGADO ORDERED TO DISCONTINUE HOLD AND DISCHARGE PATIENT TODAY. DISCONTINUE PRN MEDICATIONS. PATIENT REFUSED SKIN REASSESSMENT.
--- NOTE | 2020-03-23 11:32 | NUR ---
RN-CO: DR FATIMA MEDICALLY CLEARED PATIENT. PATIENT STATED THAT HE HAS STILL MEDICATIONS AT HOME AND HE ONLY NEEDS RX FOR KEFLEX AND CLONIDINE.ALL VALUABLES AND AND HOME MEDS WILL BE GIVEN BACK TO THE PATIENT.
--- NOTE | 2020-03-23 11:43 | NUR ---
RN-CO: PRESCRIPTIONS WAS DISCUSSED TO THE PATIENT WELL HIS DISCHARGE PAPERS AND REFERRALS TO METAL FURNITURE REPAIRER AND PSYCHIATRIST. HE VERBALIZED UNDERSTANDING.
--- NOTE | 2020-03-23 11:52 | NUR ---
RN-CO: PATIENT WAS ESCORTED BY STAFF TO HOSPITAL LOBBY. TRANSPORT IS WAITING.
== END 2020-03-23 11:55 | disposition home or self-care (01) | DRG 885 ==
LOC: GPS 12:08
PROVIDERS: ADMIT Psychiatry & Neurology Psychiatry; ATTEND Nurse Practitioner Acute Care
DX: F33.2 Major depressive disorder, recurrent severe without psychotic features (principal); N17.0 Acute kidney failure with tubular necrosis; N18.9 Chronic kidney disease, unspecified; B20 Human immunodeficiency virus [HIV] disease; F12.90 Cannabis use, unspecified, uncomplicated; Z59.0 Homelessness; Z87.442 Personal history of urinary calculi; Z73.6 Limitation of activities due to disability; F29 Unspecified psychosis not due to a substance or known physiological condition; Z91.14 Patient's other noncompliance with medication regimen; I12.9 Hypertensive chronic kidney disease with stage 1 through stage 4 chronic kidney disease, or unspecified chronic kidney disease; M19.90 Unspecified osteoarthritis, unspecified site; D63.8 Anemia in other chronic diseases classified elsewhere; Z87.440 Personal history of urinary (tract) infections
CPT/HCPCS: 36415; 76770-TC; 80048-TC; 80053-TC; 80061-TC; 81001; 82550-TC; 82570-TC; 83735-TC; 83970; 84100-TC; 84155; 84155-TC; 84165; 84300-TC; 85025-TC; 87070-TC; 87186-TC